=== PATIENT | male | born 1930 | race Caucasian/White ===

== ENCOUNTER 2017-10-31 20:22 | Inpatient (IN) ==
[2017-10-31 20:51] LABS: Basophils % 0.3 % (0.1-2.0); Eosinophils # 0.1 K/mm3 (0.0-0.4); Eosinophils % 0.8 % (0.1-12.0); Hematocrit 34.7 % (42.0-52.0); Hemoglobin 11.4 g/dL (14.1-18.0); Lymphocytes # 0.8 K/mm3 (0.7-4.5); Lymphocytes % 10.5 K/mm3 (10-50); Mean Corpuscular HGB Conc 32.9 g/dL (31.8-35.4); Mean Corpuscular Hemoglobin 32.2 pg (27.0-31.2); Mean Corpuscular Volume 97.8 fl (80-94); Mean Platelet Volume 8.9 fl (7.4-10.4); Monocytes # 0.7 K/mm3 (0.1-1.0); Monocytes % 9.4 % (1.7-9.3); Neutrophils # 5.9 K/mm3 (1.8-7.8); Neutrophils % 79.1 % (37.0-80.0); Platelet Count 139 K/mm3 (142-424); Red Blood Count 3.54 M/mm3 (4.60-6.20); Red Cell Distribution Width 13.5 % (11.5-17.5); White Blood Count 7.5 K/mm3 (4.8-10.8)
[2017-10-31 21:08] LABS: Alanine Aminotransferase 19 U/L (12-78); Albumin Level 3.4 gm/dL (3.4-5.0); Albumin/Globulin Ratio 0.9 (1.1-1.8); Alkaline Phosphatase 86 U/L (46-116); Anion Gap 16.4 mEq/L (5-15); Aspartate Amino Transferase 16 U/L (15-37); Bilirubin,Total 0.4 mg/dL (0.2-1.0); Blood Urea Nitrogen 40 mg/dL (7-18); Calcium 8.9 mg/dL (8.5-10.1); Carbon Dioxide 20 mmol/L (21.0-32.0); Chloride 105 mmol/L (98-107); Globulin 3.6 gm/dl (1.3-3.2); Glucose 119 mg/dL (74-106); Potassium 4.4 mmoL/L (3.5-5.1); Sodium 137 mmol/L (136-145)
--- NOTE | 2017-10-31 22:20 | Emergency Department Note ---
ED Disposition Clinical Impression: RBBB, Renal insufficiency UTI (urinary tract infection) Qualifiers: Urinary tract infection type: acute cystitis Hematuria presence: without hematuria Qualified Code(s): N30.00 - Acute cystitis without hematuria Disposition: Admitted as Observation Condition on Discharge: Good Referrals: Pantera Dorman MD [Primary Care Provider] - - Critical Care Critical Care Time: No Attestation: On 10/31/17, the high probability of a clinically significant, sudden or life threatening deterioration of the following system(s) required my full and direct attention, intervention and personal management. The time I documented below is in addition to time spent performing reported procedures but includes the following listed in this critical care notation. Medical Decision Making - Medical Records Medical records reviewed: Yes: I reviewed the patient's medical records. - Valentino Inquiry Pt receiving controlled substance: No Vital Signs: 10/31/17 20:23 10/31/17 20:53 10/31/17 22:18 Temperature 102.0 F H 101.2 F H 100.2 F H Temperature Source Oral Oral Oral Pulse Rate [Right Brachial] 107 H 110 H 96 H Respiratory Rate 16 17 16 Blood Pressure [Right Arm] 179/104 170/89 130/63 Blood Pressure Mean [Right Arm] 129 116 85 Blood Pressure Source [Right Arm] Automatic Cuff Blood Pressure Position [Right Arm] Supine 02 Sat by Pulse Oximetry 97 94 L 93 L Oxygen Delivery Method Room Air - Lab Data Lab results reviewed: Yes: I reviewed the patient's lab results. Lab Results 10/31/17 20:30: WBC 7.5, RBC 3.54 L, Hgb 11.4 L, Hct 34.7 L, MCV 97.8 H, MCH 32.2 H, MCHC 32.9, RDW 13.5, Plt Count 139 L, MPV 8.9, Neut % (Auto) 79.1, Lymph % (Auto) 10.5, [place] % (Auto) 9.4 H, Eos % (Auto) 0.8, Baso % (Auto) 0.3, Neut # (Auto) 5.9, Lymph # (Auto) 0.8, [place] # (Auto) 0.7, Eos # (Auto) 0.1, Baso # (Auto) 0.0 10/31/17 20:30: Sodium 137, Potassium 4.4, Chloride 105, Carbon Dioxide 20 L, Anion Gap 16.4 H, BUN 40 H, Creatinine 1.63 H, Estimated Creat Clear 35, Estimated GFR 40 L, Est GFR ( Amer) 49 L, Glucose 119 H, Calcium 8.9, Total Bilirubin 0.4, AST 16, ALT 19, Alkaline Phosphatase 86, Troponin I < 0.02, Total Protein 7.0, Albumin 3.4, Globulin 3.6 H, Albumin/Globulin Ratio 0.9 L 10/31/17 20:30: Lactate 2.1 H 10/31/17 22:14: Urine Color Yellow, Urine Appearance Sl cloudy, Urine pH 6.0, Ur Specific [place] 1.015, Urine Protein Trace, Urine Glucose (UA) Negative, Urine Ketones Negative, Urine Blood 1+, Urine Nitrate Positive, Urine Bilirubin Negative, Urine Urobilinogen 0.2, Ur Leukocyte Esterase 2+ A, Urine RBC 5-10, Urine WBC 20-50, Ur Squamous Epith Cells 3-5, Urine Bacteria 2+, Urine Mucus Trace Result diagrams: 10/31/17 20:30 10/31/17 20:30 Orders (Tests/Meds): ED MEDICATIONS Generic Name Dose Route Start Last Admin Trade Name Freq PRN Reason Stop Dose Admin Ceftriaxone Sodium 1 gm/ 50 mls @ 100 mls/hr 10/31/17 22:45 Sodium Chloride IV 11/14/17 22:44 Q24H REILLY Protocol Discontinued Medications Generic Name Dose Route Start Last Admin Trade Name Freq PRN Reason Stop Dose Admin Acetaminophen 1,000 mg 10/31/17 20:29 10/31/17 20:45 Tylenol 500mg Tablet PO 10/31/17 20:30 1,000 mg ONCE ONE Administration Sodium Chloride 1,000 mls @ 999 mls/hr 10/31/17 20:30 10/31/17 20:45 Sod Chlor 0.9% 1000ml Bag IV 10/31/17 21:30 999 mls/hr .Q1H1M REILLY Administration Ibuprofen 600 mg 10/31/17 20:29 10/31/17 20:45 Motrin 600mg Tablet PO 10/31/17 20:30 600 mg ONCE ONE Administration ORDERS Category Date Time Status Chest XR -- portable [XR chest portable] Stat Exams 10/31/17 20:33 Taken Urinalysis and Microscopic Stat Lab 10/31/17 22:14 Ordered Blood Culture Stat Micro 10/31/17 20:33 Ordered Urine Culture Stat Micro 10/31/17 22:14 Ordered 12-lead EKG Request [ECG Request by /Lisa] Stat Y 10/31/17 20:33 Ordered - Radiology Data #1 Image(s): Chest Image Reviewed: Yes I reviewed the patient's radiology image Preliminary Findings: Normal/NAD - ECG Data Tracing #1 I reviewed this ECG and interpreted as documented below: Normal Sinus Rhythm: Yes Ischemic changes: non-specific ST-T wave changes Conduction abnormalities present: RBBB ECG compared to prior tracings: this ECG reveals significant changes - Physician Consults Physician Consulted: di Reason -: Pt condition Weakness HPI - General Chief complaint: Weakness Stated complaint: WEAKNESS Time Seen by Provider: 10/31/17 20:45 Mode of Arrival: Wheelchair Source of Information: Patient, Relative, Medical Record Limitations: WEAKNESS Description of Symptoms (Recalled from ER Triage Doc. by RN): PROGRESSING WEAKNESS OVER THE LAST 3-4 DAYS, REPORTS CLOUDY URINE AND FEVER. - History of Present Illness HPI Narrative: over the last few days has inc weakness and has fever w/o chest pain or focal neuro sx - MD Complaint: generalized weakness Onset (ago): day(s) Location: generalized Migration: none Severity: moderate Context: recent illness Associated symptoms: denies other symptoms - Related Data Home Medications Medication Instructions Recorded Confirmed aspirin 81 mg tablet,delayed 81 mg PO DAILY 10/23/17 10/31/17 release doxazosin 8 mg tablet 8 mg PO DAILY 10/23/17 10/31/17 ferrous gluconate 240 mg (27 mg 240 mg PO DAILY tab 10/23/17 10/31/17 iron) tablet finasteride 5 mg tablet 5 mg PO DAILY 10/23/17 10/31/17 [id number] tablet 1 tab PO DAILY tab 10/23/17 10/31/17 lisinopril 10 mg tablet 10 mg PO DAILY 10/23/17 10/31/17 metoprolol succinate ER 50 mg 50 mg PO DAILY 10/23/17 10/31/17 capsule sprinkle, ext. release 24 hr multivit with min-folic 1 tab PO DAILY 10/23/17 10/31/17 acid-lutein 400 mcg-250 mcg chewable tablet [id number]-[id number] oil-vit D3 300 1 cap PO DAILY cap 10/23/17 10/31/17 mg-1,000 mg-1,000 unit capsule simvastatin 20 mg tablet 20 mg PO QHS 10/23/17 10/31/17 Allergies Allergy/AdvReac Type Severity Reaction Status Date / Time No Known Drug Allergies Allergy Unknown Verified 10/31/17 20:43 [facility] History I have reviewed the patient's past medical history: Yes Medical History: Reports:: Hyperlipidemia, Hypertension (heart problems), Myocardial Infarction Denies:: Cancer, Diabetes Mellitus Type 1, Diabetes Mellitus Type 2, MRSA Other Medical History: Reports: Arthritis Laterality Cases: Left: Partial Knee Replacement, Right: Total Hip Replacement Other Surgeries: Yes: Hernia Repair (inguinal), Open Heart Surgery Amputation: No Fractures: No - Social History Smoking Status: Unknown if ever smoked Alcohol Intake: never - Psychiatric History Expresses thoughts of harming self/others: None Suicide Plan Description: No Plan Family Hx:: No significant family history ROS Obtained: Yes All systems reviewed & no additional complaints - Constitutional Constitutional: Reports fever(s), Reports weakness - Eyes Eyes: Denies change in vision - ENT Ears, Nose, Mouth, and Throat: Denies sore throat - Cardiovascular Cardiovascular: Denies chest pain at rest - Respiratory Respiratory: No cough - Gastrointestinal Gastrointestingal: Denies: diarrhea - Genitourinary Male Genitourinary: Denies hematuria, Reports urinary frequency - Musculoskeletal Musculoskeletal: Denies joint pain - Integumentary/Breasts Skin/Breast: Denies rash - Neurologic Neurologic: Denies seizure-like activity, Reports weakness Physical Exam - General General appearance: in no apparent distress - Head Head exam: normocephalic - Eye Eye exam: Present: PERRL, EOMI - ENT ENT exam: Present: mucous membranes dry - Neck Neck exam: Present: trachea midline - Respiratory Respiratory exam: Present: normal lung sounds bilaterally. Absent: respiratory distress - Cardiovascular Cardiovascular exam: Present: regular rate, systolic murmur, +S4 - Abdominal Exam Abdominal exam: Present: soft - Extremities Exam Extremities exam: Absent: calf tenderness - Neurological Exam Neurological exam: Present: alert, oriented X3, CN II-XII intact - Psychiatric Psychiatric exam: Present: normal affect - Skin Skin exam: Absent: rash
[2017-10-31 22:23] LABS: Appearance,Urine SL CLOUDY (Clear); Bilirubin,Urine Negative (Negative); Blood, Urine 1+ (Negative); Color,Urine YELLOW (Yellow); Glucose,Urine (UA) Negative (Negative); Ketones,Urine Negative (Negative); Leukocyte Esterase,Urine 2+ (Negative); Microscopic, Urine URINE MICROSCOPIC (MICROSCOPIC); Protein,Urine TRACE (Negative); Specific Gravity, Urine 1.015 (1.005-1.030); Urobilinogen,Urine 0.2 EU/dl (0.2)
[2017-10-31 22:27] LABS: Bacteria,Urine 2+ /lpf; Mucus,Urine Trace /lpf; WBC,Urine 20-50 #/hpf (0-3)
[2017-11-01 05:25] LABS: Basophils % 0.2 % (0.1-2.0); Eosinophils # 0.1 K/mm3 (0.0-0.4); Eosinophils % 1.5 % (0.1-12.0); Hematocrit 30.3 % (42.0-52.0); Lymphocytes # 0.8 K/mm3 (0.7-4.5); Lymphocytes % 13.4 K/mm3 (10-50); Mean Corpuscular HGB Conc 32.8 g/dL (31.8-35.4); Mean Corpuscular Hemoglobin 32.2 pg (27.0-31.2); Mean Platelet Volume 8.9 fl (7.4-10.4); Monocytes # 0.5 K/mm3 (0.1-1.0); Neutrophils # 4.7 K/mm3 (1.8-7.8); Neutrophils % 76.9 % (37.0-80.0); Platelet Count 125 K/mm3 (142-424); Red Blood Count 3.09 M/mm3 (4.60-6.20); Red Cell Distribution Width 13.5 % (11.5-17.5); White Blood Count 6.1 K/mm3 (4.8-10.8)
[2017-11-01 05:35] LABS: Hemoglobin 10.1 g/dL (14.1-18.0)
--- NOTE | 2017-11-01 07:19 | History & Physical Report ---
*Admission Date: 11/01/17 *Chief complaint: Weakness *History of present illness: 87-year-old male with history of coronary artery disease presented to the emergency department with weakness. Patient admits he has been battling a urinary tract infection at home and using Cystex. Symptoms are primarily been burning with urination. Yesterday he developed chills and myalgias. He began using a heated blanket to try to keep himself warm. He attempted to get up out of a chair and was too weak to do so. Fire department was called. Patient was transported to the hospital via EMS. Patient has been urinating frequently overnight. He has a history of urinary tract infections. On presentation to the emergency department he had elevated temperature to 102. White blood cell count was normal. Urine and blood cultures have been obtained. Patient was given Rocephin intravenously [facility] History I have reviewed the patient's past medical history: Yes Medical History: Reports:: Hyperlipidemia, Hypertension (heart problems), Myocardial Infarction Denies:: Cancer, Diabetes Mellitus Type 1, Diabetes Mellitus Type 2, MRSA Other Medical History: Reports: Arthritis Laterality Cases: Left: Partial Knee Replacement, Right: Total Hip Replacement Other Surgeries: Yes: Cardiac Catheterization, Colonoscopy, Hernia Repair (inguinal), Open Heart Surgery Amputation: No Fractures: No - *Social History Educational Level: Attended College Smoking Status: Unknown if ever smoked Alcohol Intake: never Occupational Status: retired Housing: house Household Members: significant other, children - Psychiatric History Expresses thoughts of harming self/others: None Suicide Plan Description: No Plan *Family Hx:: No significant family history Review of Systems - Review of Systems Review of systems:: pertinent systems reviewed and negative unless documented below - Constitutional Reports body ache(s), Reports chills - *Cardiovascular Denies chest pain - *Respiratory Denies change in phlegm color, Denies chest congestion - *Neurologic Reports weakness, Denies seizure-like activity Meds Home Medications Medication Instructions Recorded Confirmed Type aspirin 81 mg tablet,delayed 81 mg PO DAILY 10/23/17 10/31/17 History release doxazosin 8 mg tablet 8 mg PO DAILY 10/23/17 10/31/17 History ferrous gluconate 240 mg (27 mg 240 mg PO DAILY tab 10/23/17 10/31/17 History iron) tablet finasteride 5 mg tablet 5 mg PO DAILY 10/23/17 10/31/17 History [id number] tablet 1 tab PO DAILY tab 10/23/17 10/31/17 History lisinopril 10 mg tablet 10 mg PO DAILY 10/23/17 10/31/17 History metoprolol succinate ER 50 mg 50 mg PO DAILY 10/23/17 10/31/17 History capsule sprinkle, ext. release 24 hr multivit with min-folic 1 tab PO DAILY 10/23/17 10/31/17 History acid-lutein 400 mcg-250 mcg chewable tablet [id number]-epa-fish oil-vit D3 300 1 cap PO DAILY cap 10/23/17 10/31/17 History mg-1,000 mg-1,000 unit capsule simvastatin 20 mg tablet 20 mg PO QHS 10/23/17 10/31/17 History Allergies Allergy/AdvReac Type Severity Reaction Status Date / Time No Known Drug Allergies Allergy Unknown Verified 10/31/17 20:43 Exam Vital signs and Labs for Last 24 Hours: Temp Pulse Resp BP Pulse Ox 97.9 F 77 20 143/71 95 11/01/17 04:46 11/01/17 04:00 11/01/17 04:00 11/01/17 04:00 11/01/17 04:00 Laboratory Results - last 24 hr 10/31/17 20:30: WBC 7.5, RBC 3.54 L, Hgb 11.4 L, Hct 34.7 L, MCV 97.8 H, MCH 32.2 H, MCHC 32.9, RDW 13.5, Plt Count 139 L, MPV 8.9, Neut % (Auto) 79.1, Lymph % (Auto) 10.5, [place] % (Auto) 9.4 H, Eos % (Auto) 0.8, Baso % (Auto) 0.3, Neut # (Auto) 5.9, Lymph # (Auto) 0.8, [place] # (Auto) 0.7, Eos # (Auto) 0.1, Baso # (Auto) 0.0 10/31/17 20:30: Sodium 137, Potassium 4.4, Chloride 105, Carbon Dioxide 20 L, Anion Gap 16.4 H, BUN 40 H, Creatinine 1.63 H, Estimated Creat Clear 35, Estimated GFR 40 L, Est GFR ( Amer) 49 L, Glucose 119 H, Calcium 8.9, Total Bilirubin 0.4, AST 16, ALT 19, Alkaline Phosphatase 86, Troponin I < 0.02, Total Protein 7.0, Albumin 3.4, Globulin 3.6 H, Albumin/Globulin Ratio 0.9 L 10/31/17 20:30: Lactate 2.1 H 10/31/17 22:14: Urine Color Yellow, Urine Appearance Sl cloudy, Urine pH 6.0, Ur Specific [place] 1.015, Urine Protein Trace, Urine Glucose (UA) Negative, Urine Ketones Negative, Urine Blood 1+, Urine Nitrate Positive, Urine Bilirubin Negative, Urine Urobilinogen 0.2, Ur Leukocyte Esterase 2+ A, Urine RBC 5-10, Urine WBC 20-50, Ur Squamous Epith Cells 3-5, Urine Bacteria 2+, Urine Mucus Trace 11/01/17 00:30: Lactate 0.6 11/01/17 01:50: Troponin I 0.03 11/01/17 05:00: Troponin I 0.06 11/01/17 05:00: WBC 6.1, RBC 3.09 L, Hgb 10.1 L D, Hct 30.3 L, MCV 98.0 H, MCH 32.2 H, MCHC 32.8, RDW 13.5, Plt Count 125 L, MPV 8.9, Neut % (Auto) 76.9, Lymph % (Auto) 13.4, [place] % (Auto) 8.0, Eos % (Auto) 1.5, Baso % (Auto) 0.2, Neut # (Auto) 4.7, Lymph # (Auto) 0.8, [place] # (Auto) 0.5, Eos # (Auto) 0.1, Baso # (Auto) 0.0 11/01/17 05:00: Sodium 138, Potassium 4.0, Chloride 112 H, Carbon Dioxide 22, Anion Gap 8.0, BUN 35 H, Creatinine 1.42 H, Estimated Creat Clear 41, Estimated GFR 47 L, Est GFR ( Amer) 57 L, Glucose 108 H, Calcium 8.0 L D I & O for Last 24 hours: Intake & Output 10/29/17 10/30/17 10/31/17 11/01/17 11:59 11:59 11:59 11:59 Intake Total 1100 / 1100 Output Total 800 / 800 Balance 300 / 300 Weight 167 lb 6 oz Narrative: Patient is awake and alert this morning. He is oriented to person and place. Oropharynx is moist. Neck is without lymphadenopathy or carotid bruits. Lungs are clear to auscultation. Heart has a regular rate and rhythm. Abdomen is soft and nontender. Patient has active range of motion in all extremities. Assessment and Plan (1) UTI (urinary tract infection) Current visit: Yes Status: Acute Qualifiers: Urinary tract infection type: acute cystitis Hematuria presence: without hematuria Qualified Code(s): N30.00 - Acute cystitis without hematuria Category: Medical Code(s): N39.0 - Urinary tract infection, site not specified (2) Renal insufficiency Current visit: Yes Status: Acute Category: Medical Code(s): N28.9 - Disorder of kidney and ureter, unspecified - Assessment and plan all Dx Assessment and Plan for all problems:: 1. Continue IV Rocephin 2. Home medicines 3. Monitor for fevers
--- NOTE | 2017-11-01 07:34 | Pharmacy Consult Notes ---
[facility] Pharmacy VTE Monitoring - Patient Demographics Admission date: 10/31/17 Report Date: 11/01/17 Time: 07:34 Allergies/Adverse Reactions: Patient Allergies No Known Drug Allergies Allergy (Unknown, Verified 10/31/17 20:43) Height: 1.78 m Weight: 75.92 kg Patient Problems: Current Active Problems UTI (urinary tract infection) (Acute) RBBB (Acute) Renal insufficiency (Acute) - VTE Risk Labs: VTE Related Lab Results Hgb 10.1 g/dL (14.1-18.0) L D 11/01/17 05:00 Hct 30.3 % (42.0-52.0) L 11/01/17 05:00 Plt Count 125 K/mm3 (142-424) L 11/01/17 05:00 BUN 35 mg/dL (7-18) H 11/01/17 05:00 Creatinine 1.42 mg/dL (0.70-1.30) H 11/01/17 05:00 Estimated Creat Clear 41 mL/min (0-300) 11/01/17 05:00 Was VTE Risk Assessment Performed: Yes VTE Score: 5 VTE Risk Level: Low Risk - Prophylaxis VTE Prophylaxis Ordered?: Yes Types of VTE Prophylaxis: TEDS Knee High Location of Applied Device: Bilateral Lower Extremeties - VTE Diagnosis Confirmed Treatment or plan recommended: Continue Current Treatment
--- NOTE | 2017-11-02 06:10 | Discharge Summary ---
General - General Admission date:: 11/01/17 Discharge date: 11/02/17 HPI HPI: 87-year-old male with history of coronary artery disease presented to the emergency department with weakness. Patient admits he has been battling a urinary tract infection at home and using Cystex. Symptoms are primarily been burning with urination. Yesterday he developed chills and myalgias. He began using a heated blanket to try to keep himself warm. He attempted to get up out of a chair and was too weak to do so. Fire department was called. Patient was transported to the hospital via EMS. Patient has been urinating frequently overnight. He has a history of urinary tract infections. On presentation to the emergency department he had elevated temperature to 102. White blood cell count was normal. Urine and blood cultures have been obtained. Patient was given Rocephin intravenously Hospital Course Hospital Course: Was admitted and placed on Rocephin. After little over 24 hours of treatment patient's dysuria resolved. Strength root and patient was able to ambulate in his room with use of a walker. He was able to get up from a chair with assistance. Patient was discharged home on November 02. At discharge she is in culture was showing no growth. Patient will be discharged home on cefuroxime 250 mg twice daily. Patient will follow-up in the office on November 06 at 3 PM. Objective Vital signs: Temp Pulse Resp BP Pulse Ox 98.8 F 96 H 16 127/69 97 11/02/17 04:00 11/02/17 04:00 11/02/17 04:00 11/02/17 04:00 11/02/17 04:00 Results Labs on day of discharge: Preliminary micro results at discharge 10/31/17 20:30 Urine Culture - Preliminary Urine,Clean Catch NO GROWTH AFTER 24 HOURS DS: Diagnosis - Discharge Diagnosis (1) UTI (urinary tract infection) Status: Acute (2) Renal insufficiency Status: Acute Discharge Plan - Patient Discharge Instructions ACTIVITY: Continue current activity DIET: continue same diet - Follow up Plan Follow up with: Prince Neri MD [Staff Physician] - 11/06/17 3:00 pm Disposition: Home, Self-Long-Term Medications: Home Medications Medication Instructions Recorded Confirmed Type aspirin 81 mg tablet,delayed 81 mg PO DAILY 10/23/17 10/31/17 History release doxazosin 8 mg tablet 8 mg PO DAILY 10/23/17 10/31/17 History ferrous gluconate 240 mg (27 mg 240 mg PO DAILY tab 10/23/17 10/31/17 History iron) tablet finasteride 5 mg tablet 5 mg PO DAILY 10/23/17 11/01/17 History metoprolol succinate ER 50 mg 50 mg PO DAILY 10/23/17 10/31/17 History capsule sprinkle, ext. release 24 hr multivit with min-folic 1 tab PO DAILY 10/23/17 10/31/17 History acid-lutein 400 mcg-250 mcg chewable tablet [id number]-epa-fish oil-vit D3 300 1 cap PO DAILY cap 10/23/17 10/31/17 History mg-1,000 mg-1,000 unit capsule simvastatin 20 mg tablet 20 mg PO HS 10/23/17 11/01/17 History Ferrous Sulfate [Iron] 65 mg PO DAILY 11/01/17 11/01/17 History Lisinopril [Zestril 5mg 5 mg PO BID 11/01/17 11/01/17 History Tablet] Prescriptions/Medication Reconciliation: New cefUROXime axetil [Ceftin 250mg Tablet] 250 mg PO BID #20 tab Continue aspirin 81 mg tablet,delayed release 81 mg PO DAILY finasteride 5 mg tablet 5 mg PO DAILY simvastatin 20 mg tablet 20 mg PO HS doxazosin 8 mg tablet 8 mg PO DAILY [id number]-fish oil-vit D3 300 mg-1,000 mg-1,000 unit capsule 1 cap PO DAILY cap multivit with min-folic acid-lutein 400 mcg-250 mcg chewable tablet 1 tab PO DAILY metoprolol succinate ER 50 mg capsule sprinkle, ext. release 24 hr 50 mg PO DAILY ferrous gluconate 240 mg (27 mg iron) tablet 240 mg PO DAILY tab Lisinopril [Zestril 5mg Tablet] 5 mg PO BID Ferrous Sulfate [Iron] 65 mg PO DAILY
== END 2017-11-02 09:36 | disposition home or self-care (01) ==
LOC: ER 20:22 → 2ND 20:22
PROVIDERS: ADMIT Emergency Medicine; ATTEND Family Medicine